=== PATIENT | male | born 1995 | race Caucasian/White ===

== ENCOUNTER 2021-04-22 12:27 | Emergency (ER) | payer OTHER, SELFPAY ==
[2021-04-22 12:30] VITALS: BP 144/80; PULSE 112; RESP 20; TEMP 36.8; O2SAT 98
[2021-04-22 14:27] VITALS: BP 134/78; PULSE 97; RESP 18; TEMP 37.4; O2SAT 99
--- NOTE | 2021-04-22 14:44 | ED.GENADULT ---
HPI - General Adult General Chief complaint: Unspecified Stated complaint: COID SHOT YESTERDAY, FEVER, CAN BARELY MOVE ARM Time Seen by Provider: 04/22/21 13:03 Source: patient Mode of arrival: ambulatory Limitations: no limitations History of Present Illness HPI narrative: Patient 26-year-old male presented with chief complaint of feeling feverish, body aches, chills and left lower arm after receiving his second Covid vaccination yesterday. Patient has been able to eat and drink. Patient does not have documented fever at this time. Patient denies any other symptoms or concerns. Related Data Allergies Allergy/AdvReac Type Severity Reaction Status Date / Time Penicillins Allergy Unknown Unknown Verified 12/07/17 11:37 phenytoin Allergy Unknown Unknown Verified 12/07/17 11:37 Review of Systems Review of Systems: CONSTITUTIONAL: Reports nondocumented fever, chills, body aches denies sweats. EYES: Denies visual changes, redness, or discharge. ENT: Denies rhinorrhea, congestion, sore throat, or otalgia. CARDIOVASCULAR: Denies chest pain, palpitations, or edema. RESPIRATORY: Denies cough or dyspnea. GASTROINTESTINAL: Denies abdominal pain, nausea, vomiting, or diarrhea. GENITOURINARY: Denies dysuria or hematuria. SKIN: Denies rash or itching. MUSCULOSKELETAL: Reports left arm pain denies back pain, joint pain, or myalgia. NEUROLOGIC: Denies headache, numbness, dizziness, or weakness. PSYCHIATRIC: Denies anxiety or depression. Exam Narrative: GENERAL: Well-appearing, well-nourished, and in no acute distress. Nontoxic in appearance. HEAD: Normocephalic, atraumatic. EYES: PERRLA and EOMI. ENT: Nares clear, no rhinorrhea or epistaxis. Mucous membranes moist. Oropharynx without tonsillar hypertrophy exudate or other lesions. Bilateral TMs pearly rooney nonbulging CHEST: Clear to auscultation. No respiratory distress. No wheezes rales or rhonchi HEART: Regular rate and rhythm. No murmur heard. Normal peripheral pulses. EXTREMITIES: Normal range of motion. No edema. SKIN: Injection site noted to patient's left upper arm. No signs of cellulitis or infection. Warm, dry, no rash. NEURO: No focal deficits. Alert and oriented x3. PSYCH: Normal mood and affect. Course Vital Signs Vital signs: Vital Signs Temperature 98.2 F 04/22/21 12:30 Pulse Rate 112 H 04/22/21 12:30 Respiratory Rate 20 04/22/21 12:30 Blood Pressure 144/80 H 04/22/21 12:30 Pulse Oximetry 98 04/22/21 12:30 Temperature 99.3 F 04/22/21 14:27 Pulse Rate 97 04/22/21 14:27 Respiratory Rate 18 04/22/21 14:27 Blood Pressure 134/78 04/22/21 14:27 Pulse Oximetry 99 04/22/21 14:27 Medical Decision Making MDM Narrative Medical decision making narrative: Patient symptoms are typical for second injection of Covid vaccination. Patient is not having any signs of anaphylaxis or infection. Patient was recommended take Tylenol and ibuprofen for discomfort and to follow-up with primary care if he has additional questions. Patient instructed return to emergency department if he has any emergent symptoms. Vital Signs Vital Signs: Vital Signs Temperature 98.2 F 04/22/21 12:30 Pulse Rate 112 H 04/22/21 12:30 Respiratory Rate 20 04/22/21 12:30 Blood Pressure 144/80 H 04/22/21 12:30 Pulse Oximetry 98 04/22/21 12:30 Temperature 99.3 F 04/22/21 14:27 Pulse Rate 97 04/22/21 14:27 Respiratory Rate 18 04/22/21 14:27 Blood Pressure 134/78 04/22/21 14:27 Pulse Oximetry 99 04/22/21 14:27 Discharge Plan Discharge Clinical Impression: Fever after COVID-19 vaccination Patient Disposition: Home, Self-Care Condition: Improved Instructions: Antibiotic Form Additional Instructions: Tylenol or ibuprofen for discomfort. Follow-up with your primary care for further evaluation. Return to the emergency department if you have any emergent symptoms. Follow-up/Referrals: UNKNOWN,DOCTOR [Primary Care Provider] -
== END 2021-04-22 14:59 | disposition home or self-care (01) ==
PROVIDERS: Emergency Provider Emergency Medicine
DX: R50.83 Postvaccination fever (principal); T50.B95A Adverse effect of other viral vaccines, initial encounter
CPT/HCPCS: 99281

== ENCOUNTER 2021-07-28 14:57 | Emergency (ER) | payer OTHER, SELFPAY ==
[2021-07-28 15:00] VITALS: BP 128/72; PULSE 92; RESP 18; TEMP 36.6; O2SAT 99
--- NOTE | 2021-07-28 16:50 | PC.NURSE ---
patient up to desk stating, i have a doctors appointment tomorrow. I'm just going to go then because you guys are busy today. patient amb out of building with steady gait and in no distress.
== END 2021-07-28 16:50 | disposition left against medical advice (07) ==
DX: M79.671 Pain in right foot (principal)
CPT/HCPCS: 99199

== ENCOUNTER 2021-08-12 14:23 | Emergency (ER) | payer OTHER, SELFPAY ==
[2021-08-12] VITALS (22 sets, daily range): BP systolic 115–141; BP diastolic 55–87; PULSE 78–109; RESP 11–17; TEMP 36.8; O2SAT 93–100
--- NOTE | ~2021-08-12 | CT_ITS ---
EXAMINATION: CT brain wo con DATE: 08/12/2021 15:09 INDICATION: Seizure. TECHNIQUE: Computed tomography (CT) of the head was performed without intravenous contrast. The mA wa s adjusted according to patient size. Iterative reconstruction technique was employed. The dose-lengt h product was 605.33 mGy-cm. COMPARISON: None FINDINGS: There is no intracranial hemorrhage, acute infarction, or abnormal intracranial mass lesion . The ventricles are normal in size. There is mild mucosal thickening in the ethmoid sinuses. The orb its are normal. The mastoid air cells are normal. IMPRESSION: 1. Normal brain. Reviewed, dictated and finalized at location A. [facility] IMPRESSION: 1. Normal brain.
--- NOTE | 2021-08-12 14:32 | ECG_ITS ---
Measurements Intervals [place] Rate: 102 P: 48 LA: 161 QRS: 29 QRSD: 87 T: 20 QT: 330 QTc: 432 Interpretive Statements SINUS TACHYCARDIA OTHERWISE NORMAL ECG NO PREVIOUS ECG AVAILABLE FOR COMPARISON Electronically Signed On 08-12-2021 14:57:54 DIRECTOR MEETINGS by Jerzy Dubose M.D.
[2021-08-12 14:51] LABS: Basophils Absolute Auto 0.1 K/mm3 (0.0-0.1); Basophils Percent Auto 0.6 % (0.2-1.2); Eosinophils Absolute Auto 0.2 K/mm3 (0-0.3); Eosinophils Percent Auto 2.6 % (0-4.4); Hematocrit 48.2 % (42.0-52.0); Hemoglobin 15.8 g/dL (14.0-18.0); Immature Granulocyte Absolute 0.14 K/mm3 (0.00-0.031); Immature Granulocyte Percent A 1.7 % (0-0.5); Lymphocytes Absolute Auto 2.94 K/mm3 (0.9-3.2); Lymphocytes Percent Auto 35.3 % (18.3-44.2); Mean Corpuscular HGB Conc 32.8 g/dl (32-36); Mean Corpuscular Hemoglobin 29.6 pg (26-34); Mean Corpuscular Volume 90.3 fl (80-100); Mean Platelet Volume 9.3 fl (7.4-10.4); Monocytes Absolute Auto 0.4 K/mm3 (0.1-0.6); Monocytes Percent Auto 5.3 % (2.6-8.5); Neutrophils Absolute Auto 4.5 K/mm3 (1.3-6.7); Neutrophils Percent Auto 54.5 % (45.5-73.1); Platelet Count Result 307 k/mm3 (150-375); Red Blood Count 5.34 M/mm3 (4.6-6.20); White Blood Count 8.3 K/mm3 (4.5-10.0)
--- NOTE | 2021-08-12 14:51 | ED.SEIZURE ---
HPI - Seizure General Chief Complaint: Seizure Stated Complaint: Seizure Time Seen by Provider: 08/12/21 14:39 Source: patient Mode of arrival: EMS Limitations: clinical condition History of Present Illness HPI Narrative: This is a 26-year-old male that presents to the emergency department after a seizure today. Patient reports he was in bed sleeping. He does not remember what happened. His girlfriend called EMS as she witnessed seizure-like activity. Reports this lasted for a couple of minutes. Patient reports he does have history of seizures for which he is supposed to take Lamictal. Reports he has been out of this for weeks. He also does not currently have a neurologist. Patient is now alert and oriented, does not have any complaints currently. Denies fever, chest pain, cough, shortness of breath, abdominal pain, or vomiting. Related Data Allergies Allergy/AdvReac Type Severity Reaction Status Date / Time Penicillins Allergy Unknown Unknown Verified 12/07/17 11:37 phenytoin Allergy Unknown Unknown Verified 12/07/17 11:37 Review of Systems Review of Systems: CONSTITUTIONAL: Denies fever CARDIOVASCULAR: Denies chest pain RESPIRATORY: Denies dyspnea. GASTROINTESTINAL: Denies abdominal pain, nausea, vomiting NEUROLOGIC: Denies headache, numbness, or weakness. All systems reviewed & are unremarkable except as noted in HPI and below PMFSH Past Medical History Medical History (Updated 08/12/21 @ 16:39 by Mansi Nieves PA-C) History of seizure disorder Social History Social History (Updated 08/12/21 @ 16:44 by Mansi Nieves PA-C) Alcohol intake: never Substance use: never Exam Narrative: GENERAL: Well-appearing, well-nourished, and in no acute distress. HEAD: Normocephalic, atraumatic. EYES: PERRLA and EOMI. ENT: Nares clear, no rhinorrhea or epistaxis. Mucous membranes moist. Oropharynx without tonsillar hypertrophy exudate or other lesions. Bilateral TMs pearly rooney non-bulging NECK: Supple. No adenopathy or masses. CHEST: Clear to auscultation. No respiratory distress. No wheezes rales or rhonchi HEART: Regular rate and rhythm. No murmur heard. Normal peripheral pulses. EXTREMITIES: Normal range of motion. No edema. SKIN: Warm, dry, no rash. NEURO: No focal deficits. Alert and oriented x3. Cranial nerves II through XII grossly intact PSYCH: Normal mood and affect Course Consultations Consultation #1: Spoke with Dr. Nevarez about patient and work-up who will follow-up in clinic. Would like patient to have an EEG ordered outpatient. Will start patient on Keppra. Patient is to not drive. Date: 08/12/21 Time: 16:44 Vital Signs Vital signs: Vital Signs Temperature 98.3 F 08/12/21 14:24 Pulse Rate 106 H 08/12/21 14:24 Respiratory Rate 11 L 08/12/21 14:24 Blood Pressure 117/78 08/12/21 14:24 Pulse Oximetry 93 08/12/21 14:24 Temperature 98.3 F 08/12/21 14:24 Pulse Rate 86 08/12/21 16:01 Respiratory Rate 13 08/12/21 16:01 Blood Pressure 117/55 L 08/12/21 16:01 Pulse Oximetry 99 08/12/21 16:01 MDM - Seizure MDM Narrative Medical decision making narrative: Patient presents to the emergency department after having a witnessed seizure today. Patient has known history of seizure disorder. He has not been taking his antiepileptic medications. Patient is alert and oriented and neurologically intact on arrival. Vitals are stable. CBC without concerning findings. Metabolic panel with mild transaminitis. UA without evidence of infection. Urine drug screen is negative. CT scan of the brain without concerning findings. Patient was updated on case findings. Spoke with Dr. Nevarze about patient and work-up who will follow-up in clinic. Would like patient to have an EEG ordered outpatient. Will start patient on Keppra. Patient is to not drive. Patient instructed on importance of continuing his antiepileptic medication and not missing doses. He is to follow-up with Dr. Shell
[2021-08-12] MEDS: levETIRAcetam 500MG/NACL 100ML 500 MG/100 ML BAG 400 MG IVPB (14:58)
[2021-08-12 15:07] LABS: Alanine Aminotransferase 108 U/L (4-50); Albumin Level 4.4 g/dL (3.5-5.1); Alkaline Phosphatase 82 U/L (38-126); Anion Gap 11 mmol/L (8-16); Aspartate Amino Transferase 70 U/L (17-59); Bilirubin,Total 0.8 mg/dL (0.2-1.3); Blood Urea Nitrogen 22 mg/dL (9-20); Calcium 8.6 mg/dL (8.4-10.2); Carbon Dioxide 21 mmol/L (22-30); Chloride 108 mmol/L (98-107); Estimated CRCL calculation 151 ml/min; Estimated Glomerular Filt Rate > 60; Glucose 142 mg/dL (65-110); Potassium 3.8 mmol/L (3.4-5.0); Sodium 140 mmol/L (137-145)
[2021-08-12 15:16] LABS: Add Urine Microscopic? NO; Appearance Urine Clear (Clear); Bilirubin Urine Negative (Negative); Blood Urine Negative (Negative); Color Urine Yellow (Yellow); Glucose Urine UA Negative (Negative); Ketones Urine Negative (Negative); Leukocyte Esterase Ur Negative LEU/UL (Negative); Nitrate Urine Negative (Negative); Protein Urine Negative (Negative); Specific Grav Ur 1.027 (1.001-1.035); Urobilinogen Urine Negative mg/dL (<2.0)
[2021-08-12 15:33] LABS: Amphetamine Screen Urine Negative (Negative); Barbiturate Screen Urine Negative (Negative); Benzodiazepines Screen Urine Negative (Negative); Cannabinoid Screen Urine Negative (Negative); Cocaine Screen Urine Negative (Negative); Methadone Screen Urine Negative (Negative); Opiate Screen Urine Negative (Negative); Phencyclidine Screen Urine Negative (Negative)
== END 2021-08-12 16:55 | disposition home or self-care (01) ==
PROVIDERS: Physician Assistant; Emergency Provider Emergency Medicine
DX: G40.909 Epilepsy, unspecified, not intractable, without status epilepticus (principal); R00.0 Tachycardia, unspecified; T42.6X6A Underdosing of other antiepileptic and sedative-hypnotic drugs, initial encounter; Z91.128 Patient's intentional underdosing of medication regimen for other reason
CPT/HCPCS: 36415; 70450; 80053; 80307; 81003; 85025; 93005; 96365; 99284; J1953

== ENCOUNTER 2021-08-18 10:30 | Outpatient (CLI) | payer OTHER, SELFPAY ==
--- NOTE | 2021-08-19 10:17 | WPDNEUROLOGY ---
Neurology EEG Report General Information Date of Study: 08/18/21 TEST eeg DIAGNOSIS epilepsy CONDITION OF RECORDING awake drowsy and sleep EEG NUMBER [id number] CLINICAL HISTORY patient reported he started having seizure about 12 years ago. Has not had 1 in couple of years until last week. Witness Bret he was shaking all over then slept the rest of the day. EEG DESCRIPTION Whole record consists of low-voltage 11 to 13 hertz per 2nd alpha admixed with low-voltage 15 to 18 hertz per 2nd beta. Throughout this tracing recurrent paroxysmal 2 to 3 hertz per 2nd spike and slow wave discharges are seen lasting from 2seconds [id number]. Paroxysmal. Nonfocal. Nonlateralizing. IMPRESSION Abnormal record due to the presence of recurrent paroxysmal spike and slow wave discharges lasting from 2 to 7 seconds at the rate of 2 to 3 hertz per minute these findings are suggestive of generalized seizure disorder clinical correlation recommended.
== END 2021-08-18 10:31 | disposition home or self-care (01) ==
PROVIDERS: Visit Provider Physician Assistant
DX: G40.909 Epilepsy, unspecified, not intractable, without status epilepticus (principal)
CPT/HCPCS: 95816

== ENCOUNTER 2021-10-12 05:54 | Emergency (ER) | payer OTHER, SELFPAY ==
--- NOTE | ~2021-10-12 | CT_ITS ---
EXAMINATION: CT soft tissue neck w con DATE: 10/12/2021 09:20 INDICATION: Sore throat TECHNIQUE: Computed tomography (CT) of the neck was performed with 75 cc of Omnipaque 300 intravenous contrast. The dose-length product (DLP) was 493.14 mGy-cm. Automated exposure control and iterative reconstruction technique were employed. COMPARISON: None FINDINGS: There is an approximately 3.5 x 2.9 cm right peritonsillar abscess. There is mass effect or opharynx. There are no pathologically enlarged cervical lymph nodes. The vascular structures appear n ormal. The visualized lung apices are clear. IMPRESSION: 1. Right peritonsillar abscess measuring up to 3.5 cm. Reviewed, dictated and finalized at location A.
[2021-10-12 05:56] VITALS: BP 131/81; PULSE 117; RESP 20; TEMP 36.6; O2SAT 100
[2021-10-12 07:44] VITALS: BP 126/75; PULSE 100; RESP 18; O2SAT 98
--- NOTE | 2021-10-12 07:48 | ED.GENADULT ---
HPI - General Adult General Chief complaint: Upper Respiratory Infection Stated complaint: Sore throat, difficutly swallowing Time Seen by Provider: 10/12/21 07:02 History of Present Illness HPI narrative: Patient is a 26-year-old male who presents ER with sore throat and difficulty swallowing. Report sore throat for 1 week. Associate with subjective fevers and chills. Endorses fatigue. Over the last 2 days she has had increased pain with attempting to swallow. He has some trismus. He is able to tolerate his own oral secretions. There is no dyspnea or stridor. Related Data Allergies Allergy/AdvReac Type Severity Reaction Status Date / Time Penicillins Allergy Unknown Unknown Verified 10/12/21 05:59 phenytoin Allergy Unknown Unknown Verified 10/12/21 05:59 Review of Systems Review of Systems: All systems reviewed & are unremarkable except as noted in HPI and below Constitutional: Constitutional: Denies chills, Denies fever(s) and Denies weakness ENT: Denies dysphagia, Reports nasal congestion and Reports sore throat Comments: Right ear pain Respiratory: Respiratory: Denies cough and Denies dyspnea Gastrointestinal: Gastrointestinal: Denies abdominal pain, Denies nausea and Denies vomiting PMFSH Past Medical History Medical History (Updated 10/12/21 @ 10:34 by Sanchez Willams MD) History of seizure disorder Social History Social History (Updated 08/12/21 @ 16:44 by Mansi Nieves PA-C) Alcohol intake: never Substance use: never Exam Narrative: GENERAL: Well-appearing, well-nourished, and in no acute distress. HEAD: Normocephalic, atraumatic. EYES: PERRLA and EOMI. ENT: Mucous membranes moist. Erythema of the posterior pharynx with right-sided asymmetric swelling abutting the uvula. Appears to be peritonsillar abscess on the right side. Uvula is not shifted. Right tympanic membrane erythematous with normal ear canal. Left tympanic membrane normal in appearance. NECK: Supple. CHEST: Clear to auscultation. No respiratory distress. HEART: Regular rate and rhythm. Normal peripheral pulses. EXTREMITIES: Normal range of motion. No edema. NEURO: Alert and oriented x3. Course Course Emergency Course: Patient informed of results. Attempted drainage with 18-gauge in the ER but attempts were unsuccessful. Contacted [facility] who recommend patient go to ER for drainage. Patient excepted by Dr. Clement. Patient is tolerating oral secretions, no stridor, no distress. Vital Signs Vital signs: Vital Signs Temperature 97.8 F 10/12/21 05:56 Pulse Rate 117 H 10/12/21 05:56 Respiratory Rate 20 10/12/21 05:56 Blood Pressure 131/81 10/12/21 05:56 Pulse Oximetry 100 10/12/21 05:56 Temperature 97.8 F 10/12/21 05:56 Pulse Rate 100 10/12/21 07:44 Respiratory Rate 18 10/12/21 07:44 Blood Pressure 126/75 10/12/21 07:44 Pulse Oximetry 98 10/12/21 07:44 Procedures Abscess I/D oral: Date of Incision: 10/12/21 Time of Incision: 10:15 Side (if applicable): right Local Anesthetic: none (Hurricaine spray) Technique: needle aspiration Amount of fluid expressed (mL): 0 I&D Results: Nothing Abcess I&D Additional Comments: Unsuccessful attempted drainage of a right peritonsillar abscess. Medical Decision Making Vital Signs Vital Signs: Vital Signs Temperature 97.8 F 10/12/21 05:56 Pulse Rate 117 H 10/12/21 05:56 Respiratory Rate 20 10/12/21 05:56 Blood Pressure 131/81 10/12/21 05:56 Pulse Oximetry 100 10/12/21 05:56 Temperature 97.8 F 10/12/21 05:56 Pulse Rate 100 10/12/21 07:44 Respiratory Rate 18 10/12/21 07:44 Blood Pressure 126/75 10/12/21 07:44 Pulse Oximetry 98 10/12/21 07:44 Lab Data Result diagrams: 10/12/21 08:52 Labs: Lab Results 10/12/21 Range/Units 08:52 Creatinine 0.70 (0.7-1.3) mg/dL Estim Creat Clear Calc 149 ml/min Estimated GFR > 60
[2021-10-12] MEDS: CLINDAMYCIN 900 MG/D5W 50 ML 900 MG/50 ML PIGGYBACK 50 MG IVPB (07:52)
[2021-10-12 09:05] LABS: Estimated CRCL calculation 149 ml/min; Estimated Glomerular Filt Rate > 60
[2021-10-12] MEDS: BENZOCAINE (*SP) 60 ML SPRAY CAN (HURRICAINE) 1 SPRAY MUCOUS MEM (10:35)
[2021-10-12 10:42] VITALS: BP 117/72; PULSE 113; RESP 20; O2SAT 99
== END 2021-10-12 11:34 | disposition short-term general hospital (02) ==
PROVIDERS: Emergency Provider Emergency Medicine
DX: J36 Peritonsillar abscess (principal); G40.909 Epilepsy, unspecified, not intractable, without status epilepticus
CPT/HCPCS: 36415; 42700; 70491; 82565; 87081; 87880; 96365; 96375; 99285; A9270; J1100; Q9967